=== PATIENT | male | born 1965 | race Caucasian/White ===

== ENCOUNTER → 2017-02-07 | Outpatient (CLI) | payer SELFPAY ==
[2013-05-22 10:58] VITALS: BP 138/87
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
== END | disposition home or self-care (01) | DRG 552 ==
LOC: RAD 14:53
PROVIDERS: ATTEND Internal Medicine
DX: M54.5 Low back pain (principal); M54.6 Pain in thoracic spine; N20.0 Calculus of kidney
CPT/HCPCS: 72128; 72131

== ENCOUNTER 2017-04-30 09:21 | Emergency (ER) | payer SELFPAY ==
[2017-04-30] MEDS ORDERED: TORADOL 30 MG VIAL ONE (09:26)
[2017-04-30] MEDS ORDERED: ZOFRAN INJ 4 MG VIAL ONE (09:26)
[2017-04-30 09:29] VITALS: BMI 28.5
[2017-04-30] MEDS ORDERED: NS 1000 ML 1,000 ML IV ONE ×2 (09:29→10:31)
[2017-04-30] MEDS ORDERED: TORADOL 60 MG VIAL IVP ONE (09:29)
[2017-04-30] MEDS ORDERED: ZOFRAN INJ 4 MG VIAL IVP ONE (09:29)
[2017-04-30] MEDS ORDERED: NS 1000 ML 1,000 ML ONE ×2 (09:29→10:30)
--- NOTE | 2017-04-30 09:31 | DR.GENAD ---
HPI - PCP Primary Care Physician: NFD - HPI Comment HPI Comment: PAIN WITH NAUSEA. WORSE THIS AM. NOT ABLE TO URINATE. NO FEVER. - Complaint/Symptoms Chief Complaint Doctors Comments: LEFT FLANK PAIN SINCE LAST NIGHT. Chief Complaint:: PT. C/O LEFT FLANK PAIN, POSSIBLE KIDNEY STONE. PT. ALSO C/O URINARY URGENCY AND RETENTION. - Nurses notes reviewed Nurses Notes Review: Yes - Source History Provided: Patient - Mode of Arrival Mode of Arrival: Ambulatory - Timing Onset of Chief Complaint: 04/29/17 PMH - PMH Past Medical History: Yes Past Medical History: Asthma Past Surgical History: Yes Surgical History: Appendectomy, Ortho Surgery - Family History History of Family Medical Conditions: No - Social History Does patient currently use any type of tobacco product: Yes Have you used tobacco products in the last 12 months: Yes Type of Tobacco Use: Cigarettes Does any household member use tobacco: Yes Alcohol Use: None Do you use any recreational Drugs:: (METH) Lives With: Family Lives Where: Home - infectious screening In the last 2 months have you had wt loss of >10#?: NO Have you had fever, night sweats or hemotysis?: No Have you traveled outside the country in the last 6 months?: No Isolation: Standard PE - Vital Signs Vitals: Temperature 97.6 F Pulse Rate [Right Brachial] 81 Pulse Rate 70 Respiratory Rate 16 Blood Pressure [Right Arm] 168/82 Blood Pressure 208/106 O2 Sat by Pulse Oximetry 100 ROR - Labs Reviewed Result Diagrams: 04/30/17 09:36 04/30/17 09:36 Laboratory: WBC 8.0 X10^3/uL (3.6-10.0) 04/30/17 09:36 RBC 5.36 X10^6/uL (4.7-6.0) 04/30/17 09:36 Hgb 16.5 g/dL (13.5-18.0) 04/30/17 09:36 Hct 48.0 % (42.0-54.0) 04/30/17 09:36 MCV 89.6 fL (80.0-100.0) 04/30/17 09:36 MCH 30.7 pg (27.0-34.0) 04/30/17 09:36 MCHC 34.3 g/dL (33.0-35.0) 04/30/17 09:36 RDW 13.9 % (11.6-16.5) 04/30/17 09:36 Plt Count 240 X10^3/uL (150.0-450.0) 04/30/17 09:36 MPV 7.5 fL (7.4-11.0) 04/30/17 09:36 Neut % 70.1 % (42.0-75.0) 04/30/17 09:36 Lymph % 18.1 % (21.0-51.0) L 04/30/17 09:36 [place] % 9.4 % (0.0-13.0) 04/30/17 09:36 Eos % 1.6 % (0.9-2.9) 04/30/17 09:36 Baso % 0.8 % (0.2-1.0) 04/30/17 09:36 Neut # 5.6 x10^3/uL (2.2-4.8) H 04/30/17 09:36 Lymph # 1.4 X10^3/uL (1.3-2.9) 04/30/17 09:36 [place] # 0.8 x10^3/uL (0.3-0.8) 04/30/17 09:36 Eos # 0.1 x10^3/uL (0.0-0.2) 04/30/17 09:36 Baso # 0.1 X10^3/uL (0.0-0.1) 04/30/17 09:36 Absolute Nucleated RBC 0.0 /100WBC 04/30/17 09:36 Sodium 137 mmol/L (136-145) 04/30/17 09:36 Corrected Sodium TNP 04/30/17 09:36 Potassium 3.7 mmol/L (3.5-5.1) 04/30/17 09:36 Chloride 102 mmol/L (98-107) 04/30/17 09:36 Carbon Dioxide 25.7 mmol/L (21-32) 04/30/17 09:36 BUN 17 mg/dL (7-18) 04/30/17 09:36 Creatinine 1.25 mg/dL (0.70-1.30) 04/30/17 09:36 Est GFR (MDRD) Af Amer > 60 (>60) 04/30/17 09:36 Est GFR (MDRD) Non-Af > 60 (>60) 04/30/17 09:36 Glucose 87 mg/dL (65-99) 04/30/17 09:36 Calcium 8.6 mg/dL (8.5-10.1) 04/30/17 09:36 Corrected Calcium TNP 04/30/17 09:36 Total Bilirubin 0.40 mg/dL (0.2-1.0) 04/30/17 09:36 AST 36 Units/L (15-37) 04/30/17 09:36 ALT 37 Units/L (12-78) 04/30/17 09:36 Alkaline Phosphatase 84 Units/L (46-116) 04/30/17 09:36 Total Protein 8.1 g/dL (6.4-8.2) 04/30/17 09:36 Albumin 3.7 g/dL (3.4-5.0) 04/30/17 09:36 Globulin 4.4 g/dL (2.5-4.5) 04/30/17 09:36 Albumin/Globulin Ratio 0.8 Ratio (1.1-2.1) L 04/30/17 09:36 Specimen Type Random urine 04/30/17 11:03 Urine Color Yellow (YELLOW) 04/30/17 11:03 Urine Appearance Clear (CLEAR) 04/30/17 11:03 Urine pH 5.0 (5.0 - 8.0) 04/30/17 11:03 Ur Specific [place] 1.010 (1.000-1.030) 04/30/17 11:03 Urine Protein Negative (NEGATIVE) 04/30/17 11:03 Urine Glucose (UA) Negative (NEGATIVE) 04/30/17 11:03 Urine Ketones Negative (NEGATIVE) 04/30/17 11:03 Urine Occult Blood 4+ (NEGATIVE) 04/30/17 11:03 Urine Nitrite Negative (NEGATIVE) 04/30/17 11:03 Urine Bilirubin Negative (NEGATIVE) 04/30/17 11:03 Urine Urobilinogen Normal (NORMAL) 04/30/17 11:03 Ur Leukocyte Esterase Negative (NEGATIVE) 04/30/17 11:03 Urine RBC 0 - 3 /HPF (NONE SEEN) 04/30/17 11:03 Urine WBC None seen /HPF (NONE SEEN) 04/30/17 11:03 Ur Squamous Epith Cells Rare /HPF (NEGATIVE) 04/30/17 11:03 Amorphous Sediment Trace /HPF (NEGATIVE) 04/30/17 11:03 Urine Bacteria Negative /HPF (NEGATIVE) 04/30/17 11:03 Ur Culture Indicated? No/not indicated 04/30/17 11:03 - Diagnosis Discharge Problem: Kidney stone on left side, Left flank pain - Discharge Plan Disposition: HOME, SELF-CARE Condition: Stable Prescriptions: Acetaminophen with Codeine [Tylenol/Codeine #3 300-30 mg] 1 tab PO Q6H PRN #15 tab PRN Reason: Pain Clonidine HCl [CATAPRES 0.1 MG TAB *] 0.1 mg PO BID #60 tab Ibuprofen [MOTRIN TAB 600 MG *] 600 mg PO TID PRN #20 tab PRN Reason: Pain/Inflammation Tamsulosin HCl [Flomax] 0.4 mg PO DAILY #10 cap - Follow ups/Referrals Follow ups/Referrals: MARK MORENO [STAFF PHYSICIAN] - 2 days NFD,Cassandra [Primary Care Provider] - 2 days DARY YOUNG [CONSULTING PHYSICIAN] - 2 days - Instructions Instructions: Kidney Stones, [id number], Hypertension, [id number], Flank Pain, [id number] Additional Instructions: RETURN TO ED IF WORSE. BP CHECK DAILY, CHART AND TAKE TO YOUR PCP.
[2017-04-30 09:54] LABS: BASOPHILS # (AUTO) 0.1 X10^3/uL (0.0-0.1); BASOPHILS % (AUTO) 0.8 % (0.2-1.0); EOSINOPHILS # (AUTO) 0.1 x10^3/uL (0.0-0.2); EOSINOPHILS % (AUTO) 1.6 % (0.9-2.9); HEMOGLOBIN 16.5 g/dL (13.5-18.0); LYMPHOCYTES # (AUTO) 1.4 X10^3/uL (1.3-2.9); LYMPHOCYTES % (AUTO) 18.1 % (21.0-51.0); MEAN CORPUSCULAR HEMOGLOBIN 30.7 pg (27.0-34.0); MEAN CORPUSCULAR HGB CONC 34.3 g/dL (33.0-35.0); MEAN CORPUSCULAR VOLUME 89.6 fL (80.0-100.0); MEAN PLATELET VOLUME 7.5 fL (7.4-11.0); MONOCYTES # (AUTO) 0.8 x10^3/uL (0.3-0.8); MONOCYTES % (AUTO) 9.4 % (0.0-13.0); NEUTROPHILS # (AUTO) 5.6 x10^3/uL (2.2-4.8); NEUTROPHILS % (AUTO) 70.1 % (42.0-75.0); PLATELET COUNT 240 X10^3/uL (150.0-450.0); RED BLOOD COUNT 5.36 X10^6/uL (4.7-6.0); RED CELL DISTRIBUTION WIDTH 13.9 % (11.6-16.5)
[2017-04-30 10:04] LABS: ALANINE AMINOTRANSFERASE 37 Units/L (12-78); ALBUMIN 3.7 g/dL (3.4-5.0); ALKALINE PHOSPHATASE 84 Units/L (46-116); ASPARTATE AMINO TRANSFERASE 36 Units/L (15-37); BLOOD UREA NITROGEN 17 mg/dL (7-18); CALCIUM 8.6 mg/dL (8.5-10.1); CARBON DIOXIDE 25.7 mmol/L (21-32); CHLORIDE 102 mmol/L (98-107); CREATININE 1.25 mg/dL (0.70-1.30); SODIUM 137 mmol/L (136-145); TOTAL PROTEIN 8.1 g/dL (6.4-8.2); eGFR BLACK RACES > 60 (>60); eGFR NON BLACK RACES > 60 (>60)
--- NOTE | 2017-04-30 10:08 | CT ---
HISTORY: Left flank pain Study: CT abdomen and pelvis without contrast Comparison: None Technique: Multiple axial images of the abdomen and pelvis were obtained from the lung bases to the pubic symphy sis without the administration of IV contrast. Findings: The visualized portions of the lung bases are unremarkable. Hydronephrosis of the left kidney is obs erved secondary to a 2 mm UVJ stone on the left. The right renal collecting system does not demonstra te obstruction are nonobstructive uropathy. The liver, spleen, pancreas, and adrenal glands are unrem arkable in their noncontrast appearance. The gallbladder does appear to be contracted but otherwise u nremarkable in CT appearance. No significant mesenteric lymphadenopathy or stranding can be observed . No free fluid or free air is seen within the abdomen. No bowel wall thickening or bowel dilatatio n is present. The colon is unremarkable. Specifically, there is no diverticulosis noted within the sigmoid colon. The urinary bladder is grossly unremarkable. The bony structures are grossly intact. IMPRESSION: Mild to moderate hydronephrosis with hydroureter secondary to a 2 mm UVJ stone on the left. Reported By:
[2017-04-30] MEDS ORDERED: FLOMAX PO ONE (10:23)
[2017-04-30 11:19] LABS: BILIRUBIN,URINE NEGATIVE (NEGATIVE); BLOOD/HEMOGLOBIN,URINE 4+ (NEGATIVE); GLUCOSE, URINE NEGATIVE (NEGATIVE); KETONES,URINE NEGATIVE (NEGATIVE); LEUKOCYTE ESTERASE ,URINE NEGATIVE (NEGATIVE); NITRITES,URINE NEGATIVE (NEGATIVE); PROTEIN,URINE NEGATIVE (NEGATIVE); UROBILINOGEN,URINE NORMAL (NORMAL)
[2017-04-30 11:22] LABS: APPEARANCE,URINE CLEAR (CLEAR); COLOR,URINE YELLOW (YELLOW)
[2017-04-30] MEDS ORDERED: CATAPRES TAB 0.1 MG PO ONE (11:34)
[2017-04-30] MEDS ORDERED: CATAPRES TAB 0.1 MG ONE (11:37)
[2017-04-30 11:38] VITALS: BP 168/82
[2017-04-30 11:44] LABS: RBC,URINE 0 - 3 /HPF (NONE SEEN); SQUAMOUS EPITHELIAL CELL,UR RARE /HPF (NEGATIVE)
[2017-04-30 11:45] LABS: AMORPHOUS SEDIMENT,UR TRACE /HPF (NEGATIVE); BACTERIA,URINE NEGATIVE /HPF (NEGATIVE)
== END 2017-04-30 11:32 | disposition home or self-care (01) ==
LOC: ER 09:22
DX: N20.0 Calculus of kidney (principal); R10.84 Generalized abdominal pain; N13.30 Unspecified hydronephrosis; N13.4 Hydroureter
CPT/HCPCS: 36415; 74176; 80053; 81001; 85025; 96365; 96367; 96374; 96375; 99282; 99283; A4222; J1885; J2405

== ENCOUNTER 2017-06-19 16:17 | Emergency (ER) | payer SELFPAY ==
[2017-06-19 16:26] VITALS: BP 126/68; BMI 29.8
[2017-06-19] MEDS ORDERED: DUONEB 0.5 MG/3 MG NEB ONE ×2 (17:40→18:20)
[2017-06-19] MEDS ORDERED: SOLU-Medrol 125 MG VIAL IVP ONE (17:40)
--- NOTE | 2017-06-19 17:40 | DR.GENAD ---
HPI - PCP Primary Care Physician: DR. XIE - Complaint/Symptoms Chief Complaint:: PT STATES "I'VE BEEN 2-3 DAYS FEELING LIKE I CAN'T BREATH, COUGHING UP STUFF. IT'S LIKE A BAD COLD" - Source History Provided: Patient - Mode of Arrival Mode of Arrival: Ambulatory - Timing Onset of Chief Complaint: 06/15/17 PMH - PMH Past Medical History: Yes Past Medical History: Asthma, Hypertension, Kidney Stones Past Surgical History: Yes Surgical History: Appendectomy, Ortho Surgery Past Surgical History Comment: PLATE AND 5 SCREWS IN RIGHT HAND - Family History History of Family Medical Conditions: Yes Family Medical History: Diabetes Mellitus, Cancer, [place], Hypertension - Social History Does patient currently use any type of tobacco product: No Have you used tobacco products in the last 12 months: No Type of Tobacco Use: Cigarettes Alcohol Use: None Do you use any recreational Drugs:: No Lives With: Mom Lives Where: Home - infectious screening Have you traveled outside the country in the last 6 months?: No Isolation: Standard ROS - Review of Systems Eyes: No Symptoms Reported ENTM: No Symptoms Reported Respiratoy: Non-Productive Cough, Barking Cough Cardiovascular: No Symptoms Reported Gastrointestinal/Abdominal: No Symptoms Reported Genitourinary: No Symptoms Reported Neurological: No Symptoms Reported Musculoskeletal: No Symptoms Reported Integumentary: No Symptoms Reported Hematologic/Lymphatic: No Symptoms Reported Endocrine: No Symptoms Reported Psychiatric: No Symptoms Reported All Other Systems: Reviewed and Negative PE - Vital Signs Vitals: Temperature 98.5 F Pulse Rate 90 Respiratory Rate 22 Blood Pressure [Right Arm] 168/82 Blood Pressure 126/68 O2 Sat by Pulse Oximetry 94 - General Limitations: No Limitations General Appearance: Alert, In No Apparent Distress - Head Head Exam: Normal Inspection, Atraumatic - Eyes Eye exam: Normal Appearance, PERRL, EOMI - ENT ENT Exam: Normal Exam External Ear Exam: Normal External Inspection TM/Canal Exam: Bilateral Normal Nose Exam: Normal Nose Exam, Sinus Tenderness Mouth Exam: Normal Inspection Throat Exam: Normal Inspection - Neck Neck Exam: Normal Inspection, Full ROM - Chest Chest Inspection: Normal Inspection - Respiratory Respiratory Exam: Normal Lung Sounds Bilat Respiratory Exam: Bilateral Clear to Auscultation - Cardiovascular Cardiovascular Exam: Regular Rate, Normal Rhythm - Abdominal Exam Abdominal Exam: Normal Inspection Abdominal Tenderness: negative: RUQ, RLQ, LUQ, LLQ, Epigastrium, Suprapubic, Diffuse, Mild, Moderate, Severe, Other - Extremities Extremities Exam: Normal Inspection, Full ROM - Back Back Exam: Normal Inspection, Full ROM - Neurologic Neurological Exam: Alert, Oriented X3, CN II-XII Intact - Psychiatric Psychiatric Exam: Normal Affect, Normal Mood - Skin Skin Exam: Warm, Dry, Intact Course - Reevaluation 1st: Improved - Education/Counseling Educated On: Treatment, Diagnosis, Prognosis ROR - Labs Reviewed Result Diagrams: 06/19/17 17:55 06/19/17 17:55 Laboratory: WBC 10.1 X10^3/uL (3.6-10.0) H 06/19/17 17:55 RBC 5.21 X10^6/uL (4.7-6.0) 06/19/17 17:55 Hgb 15.5 g/dL (13.5-18.0) 06/19/17 17:55 Hct 45.5 % (42.0-54.0) 06/19/17 17:55 MCV 87.3 fL (80.0-100.0) 06/19/17 17:55 MCH 29.8 pg (27.0-34.0) 06/19/17 17:55 MCHC 34.2 g/dL (33.0-35.0) 06/19/17 17:55 RDW 12.9 % (11.6-16.5) 06/19/17 17:55 Plt Count 303 X10^3/uL (150.0-450.0) 06/19/17 17:55 MPV 7.3 fL (7.4-11.0) L 06/19/17 17:55 Neut % (Auto) 58.4 % (42.0-75.0) 06/19/17 17:55 Lymph % (Auto) 26.4 % (21.0-51.0) 06/19/17 17:55 [place] % (Auto) 11.2 % (0.0-13.0) 06/19/17 17:55 Eos % (Auto) 3.4 % (0.9-2.9) H 06/19/17 17:55 Baso % (Auto) 0.6 % (0.2-1.0) 06/19/17 17:55 Neut # (Auto) 5.9 x10^3/uL (2.2-4.8) H 06/19/17 17:55 Lymph # (Auto) 2.7 X10^3/uL (1.3-2.9) 06/19/17 17:55 [place] # (Auto) 1.1 x10^3/uL (0.3-0.8) H 06/19/17 17:55 Eos # (Auto) 0.3 x10^3/uL (0.0-0.2) H 06/19/17 17:55 Baso # (Auto) 0.1 X10^3/uL (0.0-0.1) 06/19/17 17:55 Absolute Nucleated RBC 0.0 /100WBC 06/19/17 17:55 Sodium 136 mmol/L (136-145) 06/19/17 17:55 Corrected Sodium TNP 06/19/17 17:55 Potassium 4.5 mmol/L (3.5-5.1) 06/19/17 17:55 Chloride 102 mmol/L (98-107) 06/19/17 17:55 Carbon Dioxide 27.4 mmol/L (21-32) 06/19/17 17:55 BUN 13 mg/dL (7-18) 06/19/17 17:55 Creatinine 0.96 mg/dL (0.70-1.30) 06/19/17 17:55 Est GFR (MDRD) Af Amer > 60 (>60) 06/19/17 17:55 Est GFR (MDRD) Non-Af > 60 (>60) 06/19/17 17:55 Glucose 86 mg/dL (65-99) 06/19/17 17:55 Calcium 9.3 mg/dL (8.5-10.1) 06/19/17 17:55 - XRAY XRAY Interpreted by: Radiologist (Chest; No acute cardiopulmonary process) - Diagnosis Discharge Problem: Asthmatic bronchitis with exacerbation Qualifiers: Asthma severity: mild Asthma persistence: intermittent Qualified Code(s): J45.21 - Mild intermittent asthma with (acute) exacerbation - Discharge Plan Condition: Stable - Follow ups/Referrals Follow ups/Referrals: PJ XIE [Primary Care Provider] - 3 days - Instructions
[2017-06-19] MEDS ORDERED: SOLU-Medrol 125 MG VIAL ONE (17:44)
[2017-06-19] MEDS ORDERED: LR 1000 ML IV 1,000 ML IV ONE (17:44)
[2017-06-19] MEDS ORDERED: DUONEB 0.5 MG/3 MG ONE ×2 (17:50→18:23)
[2017-06-19] MEDS ORDERED: LR 1000 ML IV 1,000 ML IV SCH (18:00)
[2017-06-19 18:04] LABS: BASOPHILS # (AUTO) 0.1 X10^3/uL (0.0-0.1); BASOPHILS % (AUTO) 0.6 % (0.2-1.0); EOSINOPHILS # (AUTO) 0.3 x10^3/uL (0.0-0.2); EOSINOPHILS % (AUTO) 3.4 % (0.9-2.9); HEMATOCRIT 45.5 % (42.0-54.0); HEMOGLOBIN 15.5 g/dL (13.5-18.0); LYMPHOCYTES # (AUTO) 2.7 X10^3/uL (1.3-2.9); LYMPHOCYTES % (AUTO) 26.4 % (21.0-51.0); MEAN CORPUSCULAR HEMOGLOBIN 29.8 pg (27.0-34.0); MEAN CORPUSCULAR HGB CONC 34.2 g/dL (33.0-35.0); MEAN CORPUSCULAR VOLUME 87.3 fL (80.0-100.0); MEAN PLATELET VOLUME 7.3 fL (7.4-11.0); MONOCYTES # (AUTO) 1.1 x10^3/uL (0.3-0.8); MONOCYTES % (AUTO) 11.2 % (0.0-13.0); NEUTROPHILS # (AUTO) 5.9 x10^3/uL (2.2-4.8); NEUTROPHILS % (AUTO) 58.4 % (42.0-75.0); PLATELET COUNT 303 X10^3/uL (150.0-450.0); RED BLOOD COUNT 5.21 X10^6/uL (4.7-6.0); RED CELL DISTRIBUTION WIDTH 12.9 % (11.6-16.5); WHITE BLOOD COUNT 10.1 X10^3/uL (3.6-10.0)
[2017-06-19] MEDS ORDERED: ZOFRAN INJ 4 MG VIAL IVP ONE (18:05)
[2017-06-19] MEDS ORDERED: ZOFRAN INJ 4 MG VIAL ONE (18:06)
[2017-06-19 18:09] LABS: BLOOD UREA NITROGEN 13 mg/dL (7-18); CALCIUM 9.3 mg/dL (8.5-10.1); CARBON DIOXIDE 27.4 mmol/L (21-32); CHLORIDE 102 mmol/L (98-107); CREATININE 0.96 mg/dL (0.70-1.30); SODIUM 136 mmol/L (136-145); eGFR BLACK RACES > 60 (>60); eGFR NON BLACK RACES > 60 (>60)
[2017-06-19] MEDS ORDERED: DECADRON JET NEB (RESP USE) NEB ONE ×2 (18:20→18:23)
--- NOTE | 2017-06-19 18:24 | RAD ---
AP Chest Indication: Asthma with wheezing Comparison: None available Findings: The trachea is midline. The cardiac silhouette is unremarkable. The lungs are clear without focal i nfiltrate or effusion. Chronic rib fracture deformities are noted within the post lateral left thora x. Addition there is a posttraumatic deformity of the mid left clavicle. IMPRESSION: 1. No acute cardiopulmonary abnormality. Reported By:
== END 2017-06-19 19:07 | disposition home or self-care (01) ==
LOC: ER 16:17
DX: J45.21 Mild intermittent asthma with (acute) exacerbation (principal)
CPT/HCPCS: 36415; 71045; 80048; 85025; 94640; 96365; 96374; 96375; 99283; 99284; A4222; J2405; J2930; J7120; J7620